=== PATIENT | male | born 1950 | race Asian ===

== ENCOUNTER → 2022-09-10 | Outpatient (CLI) | payer MEDICARE | END | disposition home or self-care (01) | LOC: RADMN 09:18 | PROVIDERS: ATTEND Physical Medicine & Rehabilitation Spinal Cord Injury Medicine | DX: S43.401A Unspecified sprain of right shoulder joint, initial encounter (principal); M75.81 Other shoulder lesions, right shoulder; X58.XXXA Exposure to other specified factors, initial encounter; Y93.89 Activity, other specified; Y92.89 Other specified places as the place of occurrence of the external cause; Y99.8 Other external cause status | CPT/HCPCS: 73221 ==